=== PATIENT | male | born 2000 | race Caucasian/White ===

== ENCOUNTER 2018-08-05 22:54 | Emergency (ER) | payer OTHER ==
[~2018-08-05] VITALS: Ht 175.3 cm; Wt 140.6 kg
[2018-08-05 23:12] VITALS: BP 157/97
--- NOTE | 2018-08-05 23:15 | PHYS DOC ---
Adult General Chief Complaint Chief Complaint: mental health clearance HPI HPI Patient is a 18-year-old male who presents with police department with report of behavioral disturbances. Patient has history of Prader-Willi syndrome and reportedly had got into an argument with his [id number] and then wandered off. Eventually patient was caught up with and mother was able to get patient to get into the police car to be brought to the emergency room. Mother is trying to see and if patient can be placed for mental health evaluation and treatment. Patient reportedly has voiced no suicidal or homicidal ideations. Unable to obtain additional history as patient is not willing to answer any questions.[] Review of Systems Review of Systems Constitutional: Denies fever or chills [] Respiratory: Denies cough or shortness of breath [] Cardiovascular: No additional information not addressed in HPI [] GI: No report of vomiting or diarrhea [] Musculoskeletal: Positive report of injury to left lower leg and pain [] Unable to fully assess review of systems as patient is not willing to answer questions.. Physical Exam Physical Exam Constitutional: Well developed, well nourished, no acute distress, non-toxic appearance. [] HENT: Normocephalic, atraumatic, bilateral external ears normal, oropharynx moist, no oral exudates, nose normal. [] Eyes: PERRLA, EOMI, conjunctiva normal, no discharge. [] Neck: Normal range of motion, no tenderness, supple. [] Cardiovascular: Regular rate and rhythm[] Lungs & Thorax: Bilateral breath sounds clear to auscultation [] Abdomen: Bowel sounds normal, soft. [] Skin: Warm, dry, no erythema, no rash. [] Extremities: No cyanosis, no clubbing, ROM intact. [] Neurologic: Awake and alert, no focal deficits noted. [] EKG EKG [] Radiology/Procedures Radiology/Procedures [] Course & Med Decision Making Course & Med Decision Making Pertinent Labs and Imaging studies reviewed. (See chart for details) [] Dragon Disclaimer Dragon Disclaimer This electronic medical record was generated, in whole or in part, using a voice recognition dictation system. Departure Departure: Impression: Primary Impression: Behavior disturbance Disposition: 01 HOME, SELF-CARE Condition: STABLE Referrals: PCP,NO (PCP) Patient Instructions: Anger Management JASON GUZMAN Jr. DO Aug 05, 2018 23:15
[2018-08-06 00:01] LABS: BASO # 0.2 x10^3/uL (0.0-0.2); BASO % 1 % (0-3); EOS % 7 % (0-3); HEMOGLOBIN 13.5 g/dL (13.0-17.5); LYMPH % 14 % (24-48); MEAN CORPUSCULAR HEMOGLOBIN 23 pg (25-35); MEAN CORPUSCULAR HGB CONC 32 g/dL (31-37); MEAN CORPUSCULAR VOLUME 71 fL (79-100); MONO # 0.9 x10^3/uL (0.0-1.1); MONO % 6 % (0-9); NEUT # 10.8 x10^3uL (1.8-7.7); NEUT % 73 % (31-73); PLATELET COUNT 453 x10^3/uL (140-400); RED CELL DISTRIBUTION WIDTH 17.4 % (11.5-14.5); WHITE BLOOD COUNT 14.9 x10^3/uL (4.0-11.0)
[2018-08-06 00:12] LABS: ALBUMIN 3.9 g/dL (3.4-5.0); ALBUMIN/GLOBULIN RATIO 0.9 (1.0-1.7); CALCIUM 9.9 mg/dL (8.5-10.1); CREATININE 1.1 mg/dL (0.7-1.3); GFR 85.3; POTASSIUM 4.2 mmol/L (3.5-5.1); TOTAL BILIRUBIN 0.3 mg/dL (0.2-1.0); TOTAL PROTEIN 8.3 g/dL (6.4-8.2)
[2018-08-06 00:15] LABS: ACETAMIN < 2.0 mcg/mL (10-30); SALIC 0.8 mg/dL (2.8-20.0)
[2018-08-06 00:16] LABS: ETHANOL < 10 mg/dL (0-10)
[2018-08-06 00:28] LABS: % BANDS 4 % (0-9); % EOS 2 % (0-5); % LYMPHS 14 % (24-48); % MONOS 8 % (0-10); % SEGS 72 % (35-66); PLT ESTIMATE INCREASED (ADEQUATE)
[2018-08-06 00:29] LABS: ANISOCYTOSIS SLIGHT; HYPOCHROMIA SLIGHT; MICROCYTOSIS SLIGHT
[2018-08-06 00:30] LABS: TOXIC GRANULATION MOD
[2018-08-06] MEDS ORDERED: traMADol 50 MG TABLET ONE (00:37)
[2018-08-06] MEDS ORDERED: traMADol 50 MG TABLET PO ONE (01:00)
[2018-08-06 01:03] LABS: BARBITURATES NEG (NEG); BENZODIAZEPINES NEG (NEG); CANNABINOIDS NEG (NEG); COCAINE NEG (NEG); METHADONE NEG (NEG); OPIATES NEG (NEG); PHENCYCLIDINE NEG (NEG)
[2018-08-06 01:04] LABS: AMPHETAMINE/METHAMPHETAMINE POS (NEG)
[2018-08-06 01:06] LABS: BILIRUBIN,URINE NEG (NEG); CLARITY,URINE CLEAR; COLOR,URINE AMBER; GLUCOSE,URINE NEG (NEG)
[2018-08-06 01:07] LABS: BACTERIA,URINE FEW /HPF (0-FEW); NITRITE,URINE NEG (NEG); RBC,URINE OCC /HPF (0-2); SQUAMOUS EPITHELIAL CELL,UR OCC /LPF; UROBILINOGEN,URINE 0.2 mg/dL (0.2 mg/dL)
--- NOTE | 2018-08-06 09:24 | RAD ---
Left tibia-fibula AP lateral x-rays HISTORY: Left leg injury, bruising and swelling, laceration. FINDINGS: Fixation plate and screws at the medial cortex distal tibia metadiaphysis, no lucency of the bone surrounding the hardware to suggest loosening. No fracture or dislocation of the tibia and fibula. No soft tissue opaque foreign body or edema evident. IMPRESSION: No acute osseous injury. Electronically signed by: Ernst Barrett MD (08/06/2018 9:21 AM) [facility]
== END 2018-08-06 01:40 | disposition home or self-care (01) ==
LOC: ER 22:54
DX: S89.92XA Unspecified injury of left lower leg, initial encounter (principal); F91.9 Conduct disorder, unspecified; Q87.1 Congenital malformation syndromes predominantly associated with short stature; X58.XXXA Exposure to other specified factors, initial encounter; Y93.89 Activity, other specified; Y92.89 Other specified places as the place of occurrence of the external cause; Y99.8 Other external cause status
CPT/HCPCS: 36415; 73590; 80053; 80307; 80329; 81001; 85007; 85025; 99285; G0480; 82003